=== PATIENT | male | born 1965 | race Caucasian/White ===

== ENCOUNTER → 2017-02-28 | Outpatient (REF) ==
--- NOTE | 2017-02-28 23:23 | REP ---
LEFT FOOT, FOUR VIEWS: HISTORY: Degenerative joint disease. The patient is status post arthrodesis of the first through third tarsal metatarsal joints. Metal plates and screws are present. There is no acute fracture or dislocation. There is narrowing of the first metatarsal phalangeal joint space. IMPRESSION: The patient is status post arthrodesis of the first through third tarsal metatarsal joints. There is anatomic alignment. Signed by Etienne Solano MD 03/01/2017 08:46 A
== END ==
LOC: M SMT 14:33
PROVIDERS: ATTEND Internal Medicine
DX: M19.072 Primary osteoarthritis, left ankle and foot (principal); Z98.1 Arthrodesis status